=== PATIENT | female | born 1995 | race Caucasian/White ===

== ENCOUNTER 2018-05-12 11:37 | Emergency (ER) | payer OTHER ==
[~2018-05-12] VITALS: Ht 157.5 cm; Wt 49.9 kg
== END 2018-05-12 16:04 | disposition home or self-care (01) ==
LOC: ER 11:37
DX: S00.12XA Contusion of left eyelid and periocular area, initial encounter (principal); H53.9 Unspecified visual disturbance; Y04.0XXA Assault by unarmed brawl or fight, initial encounter; F17.200 Nicotine dependence, unspecified, uncomplicated
CPT/HCPCS: 70480; 81025; 99284-25

== ENCOUNTER 2020-08-10 17:39 | Emergency (ER) | payer OTHER ==
[~2020-08-10] VITALS: Ht 157.5 cm; Wt 52.2 kg
[2020-08-10] MEDS ORDERED: Vibramycin100 MG PO (19:25)
== END 2020-08-10 19:30 | disposition home or self-care (01) ==
LOC: ER 17:39
DX: L02.414 Cutaneous abscess of left upper limb (principal); F17.200 Nicotine dependence, unspecified, uncomplicated
CPT/HCPCS: 10060; 99282-25; A9270

== ENCOUNTER 2022-10-21 07:27 | Emergency (ER) | payer OTHER ==
[~2022-10-21] VITALS: Ht 165.1 cm; Wt 59.0 kg
[~2022-10-21 07:27] MED LIST: Vibramycin100 MG PO
[2022-10-21] MEDS ORDERED: BENADRYL25 MG PO (08:11)
[2022-10-21 08:29] VITALS: BP 117/80
== END 2022-10-21 08:32 | disposition home or self-care (01) ==
LOC: ER 07:27
DX: L23.7 Allergic contact dermatitis due to plants, except food (principal); F17.210 Nicotine dependence, cigarettes, uncomplicated
CPT/HCPCS: 99283; A9270; J1100

== ENCOUNTER 2023-02-09 09:10 | Emergency (ER) | payer OTHER ==
[~2023-02-09] VITALS: Ht 157.5 cm; Wt 56.7 kg
[~2023-02-09 09:10] MED LIST changes: +BENADRYL25 MG PO
[2023-02-09 09:11] VITALS: BP 133/82
== END 2023-02-09 09:18 | disposition left against medical advice (07) ==
LOC: ER 09:10
DX: R40.0 Somnolence (principal); Z53.21 Procedure and treatment not carried out due to patient leaving prior to being seen by health care provider; F17.210 Nicotine dependence, cigarettes, uncomplicated; Z91.048 Other nonmedicinal substance allergy status
CPT/HCPCS: 99282

== ENCOUNTER 2024-03-03 22:48 | Emergency (ER) | payer OTHER ==
[~2024-03-03] VITALS: Ht 157.5 cm; Wt 52.2 kg
[2024-03-03 23:29] VITALS: BP 121/63
[2024-03-03 23:50] LABS: Source, Urine Voided
[2024-03-03 23:56] LABS: Bilirubin, Urine Neg (Neg); Blood, Urine 3+ (Neg); Glucose Qualitative, Urine 1+ (Neg); Ketones, Urine Neg (Neg); Leukocyte Esterase, Urine 3+ (Neg); Nitrite, Urine Neg (Neg); Protein, Urine 2+ (Neg); Urobilinogen, Urine NORM (Normal)
[2024-03-04 00:25] LABS: Appearance, Urine Cloudy (Clear); Color, Urine Yellow (P-Yellow)
[2024-03-04 00:26] LABS: Bacteria Many /hpf; Squamous Epithelial Cells Few /hpf (Few); White Blood Cells, Urine 50-100 /hpf (0-5)
[2024-03-04] MEDS ORDERED: Pyridium100 MG PO (00:50)
[2024-03-04] MEDS ORDERED: Phenazopyridine HCl 100 MG Tab PO ONE (00:50)
[2024-03-04] MEDS ORDERED: Cephalexin Monohydrate 500 MG Cap PO ONE (00:50)
[2024-03-04] MEDS ORDERED: CEPH500 PO (00:51)
== END 2024-03-04 00:59 | disposition home or self-care (01) ==
LOC: ER 22:48
PROVIDERS: Student in an Organized Health Care Education/Training Program
DX: N39.0 Urinary tract infection, site not specified (principal); Z91.048 Other nonmedicinal substance allergy status
CPT/HCPCS: 81001; 99283; A9270

== ENCOUNTER 2024-11-07 22:17 | Observation (INO) | payer OTHER ==
[~2024-11-07] VITALS: Ht 160 cm; Wt 47.6 kg
[~2024-11-07 22:17] MED LIST changes: +CEPH500 PO; +Pyridium100 MG PO
[2024-11-08 00:37] LABS: Ethanol (Alcohol), Blood, Med <3 mg/dL; Salicylate <1.7 mg/dL (2.8-20.0)
[2024-11-08 00:39] LABS: Alanine Aminotransfer (ALT/SGP 160 U/L (12-78); Albumin, Blood 4.5 g/dL (3.4-5.0); Albumin/Globulin Ratio 1.0 (0.8-1.8); Anion Gap 12 mmol/L (3-11); Aspartate Aminotrans (AST/SGOT 87 U/L (12-37); Bilirubin, Total 1.5 mg/dL (0.1-1.0); Blood Urea Nitrogen 26 mg/dL (8-24); CO2, Blood 23 mmol/L (21-32); Calcium, Blood 9.2 mg/dL (8.5-10.1); Chloride, Blood 107 mmol/L (98-108); Creatinine, Blood 0.97 mg/dL (0.40-1.00); Globulin, Blood 4.7 g/dL (2.2-4.0); Glucose, Blood 141 mg/dL (70-99); Potassium, Blood 4.0 mmol/L (3.5-5.5); Sodium, Blood 138 mmol/L (136-145); Total Protein, Blood 9.2 g/dL (6.4-8.2)
[2024-11-08 00:49] LABS: Acetaminophen, Random <2.0 ug/mL (10.0-30.0)
[2024-11-08 01:05] LABS: BASOPHILS ABSOLUTE AUTO 0.05 K/mm3 (0.00-0.23); BASOPHILS PERCENT AUTO 1 % (0-2); EOSINOPHILS ABSOLUTE AUTO 0.14 K/mm3 (0.00-0.68); EOSINOPHILS PERCENT AUTO 1 % (0-6); Hematocrit 37.2 % (33.0-51.0); Hemoglobin 12.2 g/dL (11.5-16.0); IMMATURE GRAN ABSOLUTE AUTO 0.06 K/mm3 (0.00-0.10); IMMATURE GRAN PERCENT AUTO 1 % (0-1); LYMPHOCYTES ABSOLUTE AUTO 2.66 K/mm3 (0.84-5.20); LYMPHOCYTES PERCENT AUTO 26 % (21-46); MONOCYTES ABSOLUTE AUTO 1.01 K/mm3 (0.16-1.47); MONOCYTES PERCENT AUTO 10 % (4-13); Mean Corpuscular HGB Conc 32.8 g/dL (31.5-36.5); Mean Corpuscular Volume 90 fL (80-100); NEUTROPHILS ABSOLUTE AUTO 6.39 K/mm3 (1.96-9.15); NEUTROPHILS PERCENT AUTO 62 % (41-73); NRBC ABSOLUTE 0.00 K/mm3 (0.00-0.02); NRBC Auto 0.0 /100 WBC (0.0-0.2); Platelet Count 317 K/mm3 (150-400); RDW Coefficient Variation 13.2 % (11.7-14.2); RDW Standard Deviation 43.5 fL (35.1-46.3)
[2024-11-08 09:26] LABS: Source, Urine Clean Catch
[2024-11-08 09:32] LABS: Bilirubin, Urine Neg (Neg); Color, Urine Yellow (P-Yellow); Glucose Qualitative, Urine Neg (Neg); Ketones, Urine Neg (Neg); Leukocyte Esterase, Urine Neg (Neg); Protein, Urine 2+ (Neg); Specific Gravity, Urine 1.025 (1.003-1.022); Urobilinogen, Urine NORM (Normal)
[2024-11-08 09:39] LABS: White Blood Cells, Urine Not Seen /hpf (0-5)
[2024-11-08 09:40] LABS: Red Blood Cells, Urine 0-2 /hpf (0-2)
[2024-11-08 09:47] VITALS: BP 121/86
[2024-11-08 09:52] LABS: U Amphetamine Screen DETECTED; U Barbituate Screen Not Detected; U Benzodiazapine Screen Not Detected; U Buprenorphine Screen Not Detected; U Cannabinoids Screen Not Detected; U Cocaine Screen Not Detected; U Methadone Screen Not Detected; U Methamphetamine Screen DETECTED; U Opiates Screen Not Detected; U Oxycodone Screen Not Detected; U Phencyclidine Screen Not Detected
[2024-11-08] MEDS ORDERED: Midazolam HCL 1 MG/ML 5MLVIAL IM PRN (10:25)
[2024-11-08] MEDS ORDERED: Midazolam HCl 5 MG / ML 5ML Vial IM ONE (10:35)
[2024-11-08] MEDS ORDERED: Midazolam HCl 5MG / ML 10ML Vial XX ONE (10:50)
== END 2024-11-09 21:30 | disposition other institution (70) ==
LOC: ER 22:17 → EOR 22:18
PROVIDERS: Student in an Organized Health Care Education/Training Program; ADMIT Emergency Medicine
DX: F29 Unspecified psychosis not due to a substance or known physiological condition (principal); F15.10 Other stimulant abuse, uncomplicated; F30.9 Manic episode, unspecified; Z91.048 Other nonmedicinal substance allergy status; Z79.899 Other long term (current) drug therapy
CPT/HCPCS: 80053; 80320; 81001; 81025; 82140; 84703; 85025; 99285; A9270; G0378; G0480; J2250

== ENCOUNTER 2024-11-09 14:36 | Inpatient (IN) | payer OTHER ==
[~2024-11-09] VITALS: Ht 157.5 cm; Wt 48.0 kg
[2024-11-09] MEDS ORDERED: Aluminum Hydroxide 320MG/5ML 473 ML PO PRN (19:30)
[2024-11-09] MEDS ORDERED: Polyethylene Glycol 3350 17 gm PO PRN (19:30)
[2024-11-09] MEDS ORDERED: Ondansetron 4 MG SoluTab MM PRN (19:30)
[2024-11-09] MEDS ORDERED: Haloperidol Lactate Inj. 5 MG/ML Injection IM PRN (19:40)
[2024-11-09] MEDS ORDERED: DiphenhydrAMINE HCl 50 MG/ML 1ML Vial IM PRN ×2 (19:40)
[2024-11-09 22:00] VITALS: BP 108/85
--- NOTE | 2024-11-09 23:07 | NUR ---
ADMIT TOA: 2133 PATIENT ARRIVED TO [facility] WITH SELAM AND ANGELITA BARRY. PATIENT BECOMING VERY ANGRY AND NOT WANTING TO HAVE SKIN CHECK AND TO CHANGE INTO PATIENT SCRUBS. AT FIRST PATIENT REFUSING TO REMOVE PERSONAL UNDERWEAR, SITTING ON FLOOR AND PULLING HER KNEES UP TO HER CHEST. AFTER HAVING BOTH NURSES REINFORCING THE NEED FOR SKIN CHECK AND THAT SHE CAN'T HAVE PERSONAL CLOTHING ITEMS, PATIENT REMOVED HER UNDERWEAR AND THREW THEM AT THIS RN. SKIN CHECK COMPLETE WITH BERNICE SHANNON. PATIENT RESISTANT TO INTAKE QUESTIONS. DENIES SI, HI, OR AVH. VERBALIZED THAT SHE CAME INTO THE HOSPITAL BECAUSE OF ANXIETY AND DIFFICULTY SLEEPING. "I DON'T NEED PSYC TREATMENT" AFTER EATING A SNACK AND ANSWERING FEW QUESTIONS, PATIENT TO BED AND APPEARS TO BE SLEEPING, RESP EVEN AND UNLABORED
--- NOTE | 2024-11-10 04:17 | NUR ---
SHIFT SUMMARY AFTER EATING A SNACK DURING ADMIT INTAKE. PATIENT WENT TO BED, APPEARS TO BE SLEEPING WELL T/O NIGHT RESP EVEN AND UNLABORED. CONTINUE TO MONITOR Q15MIN
[2024-11-10 08:57] VITALS: BP 126/79
[2024-11-10] MEDS ORDERED: Multivitamins 1 Tab PO SCH (09:00)
--- NOTE | 2024-11-10 17:16 | NUR ---
SHIFT SUMMARY: PT DENIED SI, HI AND AVH. SHE ATTENED MEALS AND WAS COMPLIANT WITH MEDICATIONS. PT SPENT MOST OF THE DAY RESTING IN HER ROOM. SHE WET HER HAIR MULTIPLE TIMES IN THE SHOWER THROUGHOUT THE DAY. SHE ATTENED THE END OF THE THE FINAL GROUP OF THE DAY. LATER IN THE DAY SHE WALKED IN THE HALLWAY TALKING WITH A PEER. SHE APPEARED ANXIOUS DURING AM ASSESSMENT WITH POOR EYE CONTACT WHICH IMPROVED TOWARD THE END OF THE DAY.
[2024-11-10 20:20] VITALS: BP 102/58
--- NOTE | 2024-11-10 20:57 | NUR ---
PT REFUSING TO COMMUNICATE OR INTERACT WITH STAFF. UNABLE TO COMPLETE ASSESSMENT OF YET.
--- NOTE | 2024-11-10 21:36 | NUR ---
SUMMARY FOR REPORT OFF: PT HAS REFUSED TO PARTICIPATE IN ASSESSMENT, CARE, OR ANY OTHER EVENT THIS EVENING. LAYING IN BED WITH BLANKET OVER HEAD. STEADY RISE AND FALL OF CHEST. DID ANSWER "SLEEPING" WHEN ASKED IF SHE WAS SLEEPING OR HIDING. PT WOULD NOT ANSWER ANY FURTHER QUESTIONS THROUGHOUT MY TIME WITH HER. REPORT TO MIRTHA BURRELL.
--- NOTE | 2024-11-11 04:12 | NUR ---
SHIFT SUMMARY ASSUMED CARE AT 2129. PATIENT CONTINUES TO SLEEP WHEN UNDISTURBED. RESP EVEN AND UNLABORED. CONTINUE TO MONITOR Q15MIN
[2024-11-11 08:55] VITALS: BP 127/87
--- NOTE | 2024-11-11 17:33 | NUR ---
SHIFT SUMMARY: PT IS ALERT, ORIENTED AND COOPERATIVE THIS AM. DENIES SI, HI AND AVH. PT ATTENDED THE END OF THE FINAL GROUP. SHE WAS PRESENT FOR MEALS. SHE HAD A VISIT WITH HER GRANDPARENTS AND PT STATED THAT THE VISIT WENT GOOD. SHE SPENT TIME WALKING IN THE [place].
[2024-11-11 19:18] VITALS: BP 132/84
--- NOTE | 2024-11-12 05:27 | NUR ---
SHIFT SUMMARY: PT A/O X4. PLEASANT AND COOPERATIVE. PT DENIES SI, HI, AND AVH. GUARDED MOOD. FLAT AFFECT AND QUITE. PT ADMITTED THAT SHE USED METH AND THAT IS HER DRUG OF CHOICE. PT IN THE DINING AREA AT HE BEGINNING OF THE SHIFT. STATED THAT SHE REALLY DOESN'T REMEMBER HER BEING ADMITTED TO THE UNIT. WENT TO BED AROUND 2200 AND SLEPT FOR THE NIGHT. WILL CONTINUE TO MONITOR.
[2024-11-12 08:03] VITALS: BP 120/92
--- NOTE | 2024-11-12 08:19 | NUR ---
PT INITIALLY REFUSED LAB DRAW. SHE REPORTS THAT SHE HAS NOT STARTED MENSTRATING THIS MONTH AND SHE DOES NOT WANT TO GIVE US "HER BLOOD" UNTIL SHE STARTS. THIS RN EDUCATED ON REASON FOR DRAW AND THAT IT WOULD NOT INTERFERE WITH HER CYCLE. SHE WAS AGREEABLE. SHE DECLINED MULTIVITAMIN. AGAIN EDUCATED PT ON BENEFIT OF MULTIVITAMIN. SHE DECLINED
[2024-11-12 08:44] LABS: CHOL/HDL RATIO 3.1; Cholesterol 179 mg/dL (50-200); HDL Cholesterol 58 mg/dL (>39); LDL/HDL RATIO 1.9; Low Density Lipoprotein Chol 108 mg/dL (0-110); Triglycerides 64 mg/dL (30-140); Very Low Density Lipoprot Chol 12 mg/dL (6-28)
--- NOTE | 2024-11-12 10:48 | NUR ---
SHIFT ASSESSMENT: PT WAS STANDING IN HER ROOM WHEN THIS RN WENT TO THE DOORWAY AND SAID HER NAME, PT SAID, "NO THANK YOU, I DON'T WANT TO BE HERE AND I DON'T WANT TO TALK TO ANYONE. SOMEONE IS WRITING ON MY PAPERS AND PUTTING [place] IN MY BOOK AND I KNOW I DIDN'T DO IT CAUSE I DON'T READ." AFTER A SELF INTRODUCTION HER NURSE SHE THEN ANSWERED QUESTIONS AND SAID, "THANK YOU SOOOO MUCH...I LOVE IT HERE YOU ALL ARE SO KIND." SHE DENIED SI, HI AND AVH. SHE ENDORSED ANXIETY, "A LTTLE MORE THAN MEDIUM." SHE REPORTED HER MOOD , "I'M OK...MORE HOPEFUL THAN SAD." PT THEN WENT INTO THE TV ROOM AND PLAYED CARDS WITH STAFF AND A PEER. SHE WAS CALM AND COOPERATIVE.
[2024-11-12 19:07] VITALS: BP 121/72
--- NOTE | 2024-11-13 05:11 | NUR ---
SHIFT SUMMARY Pt is A&O, calm, cooperative, eye contact is good. Pt reports her mood as good, affect is congruent with stated mood. Pt denies SI, HI, and hallucinations. Pt denies current pain or other medical issues. Pt stated that she would like to try trazodone and melatonin tonight to help her sleep, but declined to take PRNs later in the evening. Pt was active on the milieu, walking the hallway with a peer most of the evening. Staff continues to monitor q15m for safety and wellness.
[2024-11-13 08:39] VITALS: BP 132/94
--- NOTE | 2024-11-13 12:32 | NUR ---
TRANSFER OF CARE NO ACUTE EVENTS TODAY. PT DENIES SI, HI, AVTH. ATTENDING GROUPS, MEALS, GOING TO DAYROOM AND INTERACTING W/ PEERS/STAFF. CONTINUES TO REFUSE MEDICATIONS AND IS GUARDED WHEN TALKING ABOUT CARE, BUT IS PLEASANT AND CONVERSATIVE WHILE WATCHING MOVIES OR TALKING ABOUT EXERCISE. TRANSFER OF CARE TO KATE SHANNON SOON.
--- NOTE | 2024-11-13 16:50 | NUR ---
DAY SHIFT SUMMARY: THIS HOSPITAL INTERN ASSUMED CARE OF THIS PATIENT AT 1245. PATIENT APPEARS TO BE ALERT AND ORIENTATED, ALTHOUGH SOME OF HER SENTENCES SEEM TO BE TWO TOPICS COMBINED INTO ONE SENTENCE- EXAMPLE: "tODAY IS THE , IS IT ORIGAMI THE PAPER SHAPES, ITS THE . PATIENT HAS DISPLAYED SAFE BEHAVIOR THIS ENTIRE SHIFT. SHE MADE NO COMPLAINTS OF SELF HARM, SUICIDAL THOUGHTS OR HALLUCINATION. SHE HAS PARTICIPATED IN GROUPS AND SPENT A GENEROUS AMOUNT OF THE DAY IN THE GROUP ROOM WITH PEERS. SHE DENIES PAIN AND ANY OTHER ISSUES. THE PATIENT IS CURRENTLY WATCHING A MOVIE. VISITORS ARE EXPECTED TOMORROW AND FRIDAY. IF SHE IS DISCHARGED FRIDAY, SHE SHOULD BE REMINDED TO NOTIFY HER VISITOR (MOM). PLAN FOR DC IS EITHER FRIDAY OR FRIDAY PER DR. HARDIN NOTE.
[2024-11-13 19:20] VITALS: BP 125/82
--- NOTE | 2024-11-14 05:50 | NUR ---
SHIFT SUMMARY Pt is A&O, calm, cooperative, eye contact is good. Pt reports her mood as hopeful, affect is constricted. Pt denies SI, HI, and hallucinations. Pt denies current pain or other medical issues. Dramatic Critic explained that provider was thinking she might d/c Friday or Friday and asked what her living situation will be after d/c. Pt stated that she is meeting with her father tomorrow and mother on Friday and hopefully she will be able to make proper arrangements after those meetings, otherwise, she was okay to d/c to [facility]. Pt was active on the milieu during the evening, pleasantly interacting with staff and peers. She retired to her room at about 2200 and remained there for the rest of the shift. Staff continues to monitor q15m for safety and wellness.
[2024-11-14 08:53] VITALS: BP 114/69
--- NOTE | 2024-11-14 18:00 | NUR ---
SHIFT SUMMARY PT DENIES SI, HI, AVTH. ATTENDED GROUPS, INTERACTED W/ STAFF/PEERS, AND PLAYED GAMES/PUZZLE W/ STAFF/PEERS. PT HAD FATHER AND GRANDPA VISIT. BOTH VISITORS TOLD THIS RN THAT PT IS NOT AT BASELINE. UNSURE OF WHEN LAST TIME VISITORS HAVE SEEN PT. NO OTHER ACUTE EVENTS TODAY.
[2024-11-14 19:53] VITALS: BP 121/71
--- NOTE | 2024-11-15 06:00 | NUR ---
SHIFT SUMMARY Pt is A&O, calm, cooperative, eye contact is good. Pt reports her mood as okay, affect is constricted. Pt denies SI, HI, and hallucinations. Pt denies current pain or other medical issues. Pt stated that she talked to her father and grandfather today and will not be staying with her grandfather after discharge. Her mother will be visiting tomorrow. Pt s plan is to discharge to the [facility] on Friday or Friday. Pt was active on the milieu during the evening, pleasantly interacting with peers and staff. Pt was still awake at about 0015 and asked for PRN trazodone and melatonin to help her sleep. Staff continues to monitor q15m for safety and wellness.
[2024-11-15 09:05] VITALS: BP 125/77
--- NOTE | 2024-11-15 17:35 | NUR ---
SHIFT SUMMARY PT AxOx4. PLEASANT AND COOPERATIVE WITH CARE. PT DENIED SI/HI AND AVTH THIS SHIFT AND REPORTED "GOOD" MOOD TODAY. SHE HAS BEEN FOLLOWING HER TREATMENT PLAN INCLUDING TAKING ATTENDING MILIEU GROUPS AND MINGLING APPROPRIATELY. THE PATIENT IS STILL RESISTANT TO TAKING MEDICATIONS. SHE HAS BEEN WALKING IN THE HALLS OFTEN THIS SHIFT WELL CHATTING CHEERFULLY WITH OTHER PATIENTS. CURRENT DC PLAN IS FOR PATIENT TO DC TOMORROW TO HALFWAY. PT IS AWARE AND AGREEABLE TO THIS. SHE IS CURRENLTY WALKING IN THE [place]. DENIES ANY NEEDS AT THIS TIME.
[2024-11-15 19:17] VITALS: BP 135/83
--- NOTE | 2024-11-16 05:45 | NUR ---
SHIFT SUMMARY Pt is A&O, calm, cooperative, eye contact is good. Pt reports her mood as good, affect is constricted. Pt denies SI, HI, and hallucinations. Pt denies current pain or other medical issues. Pt stated that she slept better last night after receiving PRN trazodone, but did not want trazodone tonight but will take PRN melatonin. RN explained that melatonin is available OTC at any drugstore. No PRNs given. Pt was active on the milieu during the evening, pleasantly interacting with peers and staff. Staff continues to monitor q15m for safety and wellness.
--- NOTE | 2024-11-16 08:36 | NUR ---
IMPORTANT DISCHARGE INFORMATION PATIENT DISCHARGING TODAY. [facility] WILL BE PICKING HER UP AROUND 1PM. SHE WILL BE GOING TO THE [facility] ([facility] ALL PARTIES VERBALIZE AN UNDERSTANDING. FOLLOW UP APPINTMENT WITH NEW PCP DR. GASPAR AT THE [facility] ON 11/18/24 AT 10:20 AM. PATIENT HAS BEEN REFERRED TO [facility], [facility] AT [facility]. PHARMACY: JOAN FAX#
[2024-11-16 09:09] VITALS: BP 128/69
--- NOTE | 2024-11-16 12:54 | NUR ---
DISCHARGE PT A/O X4; COOPERATIVE WITH CARE. SHE DENIES SI, HI, HALLUCINATIONS. DISCHARGE INSTRUCTIONS GONE OVER WITH PATIENT. PT HAD DIFFICULTY UNDERSTANDING INSTRUCTIONS. PT HAD A HARD TIME UNDERSTANDING FOLLOW UP APPOINTMENTS AND WHAT TO DO. REITERATED THAT APPOINTMENT IS AT [facility] ON FRIDAY AT 10:20. ENCOURAGED PT TO GO TO [facility] WELL. PT STATES THAT THEY UNDERSTAND INSTRUCTIONS, BUT UNCLEAR. BELONGINGS RETURNED TO PATIENT AND TRANSPORTION SCHEDULED TO PICK PT UP AT 1300.
== END 2024-11-16 13:04 | disposition home or self-care (01) | DRG 885 ==
LOC: BHU 14:36
PROVIDERS: ADMIT Psychiatry & Neurology Psychiatry
DX: F23 Brief psychotic disorder (principal); F15.10 Other stimulant abuse, uncomplicated
CPT/HCPCS: 36415; 80061; 83036; A9270